=== PATIENT | female | born 1995 | race Caucasian/White ===

== ENCOUNTER 2016-09-24 08:37 | Emergency (ER) | payer OTHER ==
[~2016-09-24] VITALS: Ht 170.2 cm; Wt 101.0 kg
[~2016-09-24 08:37] MED LIST: AUG875 PO; HYDR-3498 PO; OFLO5DRO46 RIGHT EYE; ONDA4TAB35 PO
[2016-09-24 08:44] VITALS: Ht 170.2 cm; Wt 101.0 kg
[2016-09-24] MEDS ORDERED: D-ME473S18 PO (09:11)
[2016-09-24] MEDS ORDERED: BENZ100C70 PO (09:11)
[2016-09-24] MEDS ORDERED: AZIT250T94 PO (09:11)
--- NOTE | 2016-09-24 09:57 | ERD ---
DATE OF SERVICE: 09/24/2016 HISTORY OF PRESENT ILLNESS: The patient is a 20-year-old female complaining of a cough and a sore t hroat. She has had these symptoms for the last 2 weeks. She has had a runny nose and her ears have been ringing and painful. She has not taken medications for her symptoms. Denies sick contacts. Denies fevers. States she is losing her voice. PAST MEDICAL HISTORY: Denies any other medical problems. ALLERGIES: DENIES ALLERGIES TO MEDICATION. SURGICAL HISTORY: Had surgery on her foot when she was younger for glass in her foot. SOCIAL HISTORY: Denies. REVIEW OF SYSTEMS: A 12-point review of systems was done. Refer to HPI for positives, all other sy stems negative. PHYSICAL EXAMINATION: VITAL SIGNS: Temperature is 97.3, pulse is 81, blood pressure is 120/68, respiratory 18, O2 saturat ion 97% on room air. Pain intensity is 0/10. GENERAL: The patient is well-appearing, well-nourished, no acute distress. HEENT: Atraumatic. Conjunctivae are pink. Pupils equal, round, and reactive to light. There is no s cleral icterus. Tympanic membranes clear bilaterally. Oropharynx clear. No nystagmus or photophobia . NECK: C-spine is soft and supple. There is no meningismus. There is no cervical lymphadenopathy. No JVD. No bruits. No goiter. CHEST: Clear to auscultation bilaterally. There are no rales, wheezes or rhonchi. HEART: Regular rate and rhythm. No murmurs, clicks, rubs or gallops. No S3 or S4. ABDOMEN: Soft, nontender and nondistended. Good bowel sounds. No rebound or guarding. No gross halina tonitis. No gross organomegaly or masses. No Cat sign or McBurney point tenderness. SKIN: There is no apparent rash or petechia. The skin is warm and dry. DIAGNOSIS: Upper respiratory infection. MEDICAL DECISION MAKING: The patient had the symptoms nonresolving for the last 2 weeks; however, I feel patient's symptoms are likely associated with viral etiology given the length of her symptoms, I will treat with azithromycin and symptomatic medication for her cough. I have low suspicion for pneumonia, low suspicion for bacterial HEENT infection, meningitis or sepsis and low suspicion for a cute abdomen. DISCHARGE: The patient is discharged stable. Patient is given prescription for azithromycin, Leslie alisson and promethazine and told to follow up with primary care within 1 to 2 days for reevaluation. T he patient was told if symptoms progress or worsen to return to the ER. All other questions answere d at time of discharge. Discharge summary given at the time of departure. Patient understood and c omplied with plan. Dictated By: BRIJESH PALOMINO PA for SYDNEY MA/NTS Conf#: [id number] DID#: [id number]
== END 2016-09-24 09:33 | disposition home or self-care (01) ==
LOC: FTE 08:37
DX: J06.9 Acute upper respiratory infection, unspecified (principal)
CPT/HCPCS: 99284

== ENCOUNTER 2017-01-09 20:19 | Emergency (ER) | payer OTHER ==
[~2017-01-09] VITALS: Ht 167.6 cm; Wt 108.0 kg
[~2017-01-09 20:19] MED LIST changes: +AZIT250T94 PO; +BENZ100C70 PO; +D-ME473S18 PO
[2017-01-09 20:31] VITALS: Ht 167.6 cm; Wt 108.0 kg
[2017-01-09] MEDS ORDERED: IBUP800T25 PO (21:32)
[2017-01-09] MEDS ORDERED: TRAM50TA2 PO (21:32)
--- NOTE | 2017-01-09 22:10 | ERD ---
ER Documentation Chief Complaint Date/Time DATE: 01/09/17 TIME: 22:06 Chief Complaint chronic back pain, r side pain HPI This is a 21-year-old female presenting to the emergency department for chronic back pain x 2 months. Patient attributes pain to work and states she is lifting heavy boxes while working. No fall. Patient has been taking ibuprofen intermittently for pain and states this is not working. Patient states pain is worse with position changes bending over. No chest pain, shortness breath or difficulty breathing. ROS All systems reviewed and are negative except as per history of present illness. Medications Home Meds Active Scripts Tramadol HCl (Tramadol HCl) 50 Mg Tablet, 50 MG PO Q4 Y for PAIN, #10 TAB Prov:EULALIA MORALES NP 01/09/17 Ibuprofen* (Motrin*) 800 Mg Tab, 800 MG PO Q6, #20 TAB Prov:EULALIA MORALES NP 01/09/17 Dextromethorphan Hb-Promethazine Hcl (Promethazine DM Syrup) 473 Ml Syrup, 5 ML PO Q6H Y for COUGH, #4 OZ Prov:SILVIA PALOMINO PA-C 09/24/16 Benzonatate* (Tessalon Perle*) 100 Mg Capsule, 100 MG PO TID, #30 CAP Prov:SILVIA PALOMINO PA-C 09/24/16 Azithromycin* (Zithromax*) 250 Mg Tablet, 250 MG PO .ZPACK DIRECTED, #6 TAB TAKE 500 MG (2 TABS) THE FIRST DAY THEN 250 MG (1 TAB) DAYS 2-5 Prov:SILVIA PALOMINO PA-C 09/24/16 Ofloxacin* (Ocuflox*) 0.3%-5 Ml Ophth Drops, 1 DROP RIGHT EYE QID for 7 Days, BOTTLE Prov:RONAK GONZALES 06/13/16 Amoxicillin-Clavulanate K* (Augmentin*) 875 Mg Tab, 875 MG PO BID for 7 Days, TAB Prov:ADRIÁN KRAUS 09/15/15 Ondansetron Hcl* (Zofran* ODT) 4 mg -ODT Tab.disper, 4 MG PO Q6 Y for NAUSEA AND /OR VOMITING, #10 TAB Prov:MARCO AMANDA NP 09/13/15 Hydrocodone Bit-Acetaminophen* ([place]*) 5-325 Mg Tab, 1 TAB PO Q6 Y for PAIN, # 10 TAB Prov:MARCO AMANDA. CHEMICAL RESEARCH WORKER 09/13/15 Allergies Allergies: Coded Allergies: No Known Allergy (Verified , 09/24/16) PMhx/Soc History of Surgery: Yes (Surgery to remove glass from R foot) Anesthesia Reaction: No Hx Neurological Disorder: No Hx Respiratory Disorders: No Hx Cardiac Disorders: No Hx Psychiatric Problems: No Hx Miscellaneous Medical Probl: No Hx Alcohol Use: No Hx Substance Use: No Hx Tobacco Use: No Physical Exam Vitals Vital Signs Date Time Temp Pulse Resp B/P Pulse Ox O2 Delivery O2 Flow Rate FiO2 01/09/17 20:31 97.5 77 18 141/71 100 Physical Exam Const: Alert, [id number] Head: Atraumatic Eyes: Normal Conjunctiva ENT: Normal External Ears, Nose and Mouth. Neck: Full range of motion..~ No meningismus. Resp: Clear to auscultation bilaterally. No wheezing, rhonchi or crackles. Cardio: Regular rate and rhythm, no murmurs Abd: Soft, non tender, non distended. Normal bowel sounds Skin: No petechiae or rashes Back: No midline or flank tenderness Ext: No cyanosis, or edema Neur: Awake and alert Psych: Normal Mood and Affect Procedures/MDM MDM: This is a 21-year-old female presenting to emergency department for chronic back pain 2 months. Patient has pain mainly to right side of lower back. No midline tenderness. No CVA tenderness. No dysuria or hematuria. No urinary frequency or urgency. Patient has been taking ibuprofen OTC for this pain without relief. No signs or symptoms of respiratory distress. Denies chest pain, shortness of breath or difficulty breathing. No heart palpitations or chest pressure. Low suspicion for acute VA, cauda equina syndrome, UTI or pyelonephritis. Patient likely has back pain, musculoskeletal. Patient is appropriate for outpatient management will be given prescription for ibuprofen 800 mg and tramadol 50 mg. Instructed patient to follow-up with primary care provider in the next 2-3 days for reassessment. Return to ED for any high fever, chest pain, difficulty breathing, shortness breath, wheezing, vomiting, diarrhea, abdominal pain or any new or worsening symptoms. Patient verbalizes understanding. All questions answered at discharge. Departure Diagnosis: Primary Impression: Back pain Back pain location: low back pain Chronicity: acute Back pain laterality: right Sciatica presence: unspecified whether sciatica present Qualified Code : M54.5 - Acute right-sided low back pain, with sciatica presence unspecified Condition: Stable Patient Instructions: Back Pain (Acute Or Chronic) Referrals: COMM[facility]ITY CLIN[facility] YOU HAVE RECEIVED A MEDICAL SCREENING EXAM AND THE RESULTS INDICATE THAT YOU DO NOT HAVE A CONDITION THAT REQUIRES URGENT TREATMENT IN THE EMERGENCY DEPARTMENT. FURTHER EVALUATION AND TREATMENT OF YOUR CONDITION CAN WAIT UNTIL YOU ARE SEEN IN YOUR DOCTORS OFFICE WITHIN THE NEXT 1-2 DAYS. IT IS YOUR RESPONSIBILITY TO MAKE AN APPOINTMENT FOR FOLOW-UP CARE. IF YOU HAVE A PRIMARY DOCTOR --you should call your primary doctor and schedule an appointment IF YOU DO NOT HAVE A PRIMARY DOCTOR YOU CAN CALL OUR PHYSICIAN REFERRAL HOTLINE AT IF YOU CAN NOT AFFORD TO SEE A PHYSICIAN YOU CAN CHOSE FROM THE FOLLOWING [facility] [address] [facility] [address] [facility]. [facility] [address] [facility] [address] [facility] [address] [facility]. [facility]. [address] [facility]. [facility] YOU HAVE RECEIVED A MEDICAL SCREENING EXAM AND THE RESULTS INDICATE THAT YOU DO NOT HAVE A CONDITION THAT REQUIRES URGENT TREATMENT IN THE EMERGENCY DEPARTMENT. FURTHER EVALUATION AND TREATMENT OF YOUR CONDITION CAN WAIT UNTIL YOU ARE SEEN IN YOUR DOCTORS OFFICE WITHIN THE NEXT 1-2 DAYS. IT IS YOUR RESPONSIBILITY TO MAKE AN APPOINTMENT FOR FOLOW-UP CARE. IF YOU HAVE A PRIMARY DOCTOR --you should call your primary doctor and schedule and appointment IF YOU DO NOT HAVE A PRIMARY DOCTOR YOU CAN CALL OUR PHYSICIAN REFERRAL HOTLINE AT . IF YOU CAN NOT AFFORD TO SEE A PHYSICIAN YOU CAN CHOSE FROM THE FOLLOWING [facility] INSTITUTIONS: [facility] [address] [place] [address] [facility] [address] [place] [address] [facility] [address] [place] [address] Additional Instructions: Call your primary care doctor TOMORROW for an appointment during the next 2-3 days.See the doctor sooner or return here if your condition worsens before your appointment time. Return to ED for any chest pain, shortness of breath, difficulty breathing, fever, vomiting or any other new or worsening symptoms. EULALIA MORALES NP Jan 09, 2017 22:10
== END 2017-01-09 21:41 | disposition home or self-care (01) ==
LOC: E/R 20:19
DX: M54.5 Low back pain (principal)
CPT/HCPCS: 99283

== ENCOUNTER 2017-03-16 19:52 | Emergency (ER) | payer OTHER ==
[~2017-03-16] VITALS: Ht 165.1 cm; Wt 104.5 kg
[~2017-03-16 19:52] MED LIST changes: +CIPR500T4 PO; +DICY10CA60 PO; +IBUP800T25 PO; +TRAM50TA2 PO
[2017-03-16 20:05] VITALS: Ht 165.1 cm; Wt 104.5 kg
[2017-03-16] MEDS ORDERED: ONDANSETRON (ODT) 4 MG TAB ODT STA (20:19)
[2017-03-16] MEDS ORDERED: ONDA4TAB14 PO (20:28)
[2017-03-16] MEDS ORDERED: DICY10CA60 PO (20:28)
[2017-03-16] MEDS ORDERED: IBUP-1542 PO (20:28)
[2017-03-16] MEDS ORDERED: IBUPROFEN 600 MG TAB PO ONE (20:30)
[2017-03-16] MEDS ORDERED: DICYCLOMINE 10 MG CAP PO ONE (20:30)
[2017-03-16] MEDS ORDERED: AL HYDROX/MG HYDROX/SIMETH 30 ML CUP PO ONE (20:30)
--- NOTE | 2017-03-16 20:41 | ERD ---
ER Documentation Chief Complaint Date/Time DATE: 03/16/17 TIME: 20:34 Chief Complaint LOWER AP SINCE LAST NIGHT +N/V/D HPI 21-year-old female presents here in emergency department for complaints of lower abdominal pain nausea vomiting and diarrhea that started last night. Patient's complaining of lower abdominal pain cramping pain for 6/10 scale, is accompanied with vomiting diarrhea. Patient does not have any blood in the stool or black stool. Patient does not have any blood in the vomit. Patient does not have any sick contacts. Patient did not take any medications to help with symptoms. ROS All systems reviewed and are negative except as per history of present illness. Medications Home Meds Active Scripts Ondansetron (Ondansetron Odt) 4 Mg Tab.rapdis, 4 MG PO Q8 Y for NAUSEA AND/OR VOMITING, #30 TAB Prov:HUSSAIN ZAVALA NP 03/16/17 Ibuprofen* (Motrin*) 600 Mg Tab, 600 MG PO Q6H Y for PAIN AND OR ELEVATED TEMP, #30 TAB Prov:HUSSAIN ZAVALA NP 03/16/17 Dicyclomine Hcl* (Bentyl*) 10 Mg Capsule, 10 MG PO QID, #20 CAP Prov:HUSSAIN ZAVALA NP 03/16/17 Tramadol HCl (Tramadol HCl) 50 Mg Tablet, 50 MG PO Q4 Y for PAIN, #10 TAB Prov:EULALIA MORALES NP 01/09/17 Ibuprofen* (Motrin*) 800 Mg Tab, 800 MG PO Q6, #20 TAB Prov:EULALIA MORALES NP 01/09/17 Dextromethorphan Hb-Promethazine Hcl (Promethazine DM Syrup) 473 Ml Syrup, 5 ML PO Q6H Y for COUGH, #4 OZ Prov:SILVIA PALOMINO PA-C 09/24/16 Benzonatate* (Tessalon Perle*) 100 Mg Capsule, 100 MG PO TID, #30 CAP Prov:SILVIA PALOMINO PA-C 09/24/16 Azithromycin* (Zithromax*) 250 Mg Tablet, 250 MG PO .SANGITA DIRECTED, #6 TAB TAKE 500 MG (2 TABS) THE FIRST DAY THEN 250 MG (1 TAB) DAYS 2-5 Prov:SILVIA PALOMINO PA-C 09/24/16 Ofloxacin* (Ocuflox*) 0.3%-5 Ml Ophth Drops, 1 DROP RIGHT EYE QID for 7 Days, BOTTLE Prov:RONAK GONZALES C 06/13/16 Amoxicillin-Clavulanate K* (Augmentin*) 875 Mg Tab, 875 MG PO BID for 7 Days, TAB Prov:NAYANAADRIÁN F 09/15/15 Ondansetron Hcl* (Zofran* ODT) 4 mg -ODT Tab.disper, 4 MG PO Q6 Y for NAUSEA AND /OR VOMITING, #10 TAB Prov:MARCO AMANDA. INFORMATION RESOURCE CONSULTANT 09/13/15 Hydrocodone Bit-Acetaminophen* ([place]*) 5-325 Mg Tab, 1 TAB PO Q6 Y for PAIN, # 10 TAB Prov:MARCO AMANDA. INFORMATION RESOURCE CONSULTANT 09/13/15 Allergies Allergies: Coded Allergies: No Known Allergy (Verified , 09/24/16) PMhx/Soc Medical and Surgical Hx: pt denies Medical Hx History of Surgery: Yes (Surgery to remove glass from R foot, cholecystectomy) Anesthesia Reaction: No Hx Neurological Disorder: No Hx Respiratory Disorders: No Hx Cardiac Disorders: No Hx Psychiatric Problems: No Hx Miscellaneous Medical Probl: No Hx Alcohol Use: No Hx Substance Use: No Hx Tobacco Use: No Smoking Status: Never smoker FmHx Family History: No coronary disease, No diabetes, No other Physical Exam Vitals Vital Signs Date Time Temp Pulse Resp B/P Pulse Ox O2 Delivery O2 Flow Rate FiO2 03/16/17 20:05 99.4 85 18 119/84 99 Physical Exam GENERAL: The patient is well developed and appropriate for usual state of health, in no apparent distress. CHEST: Clear to auscultation bilaterally. There are no rales, wheezes or rhonchi. HEART: Regular rate and rhythm. No murmurs, clicks, rubs or gallops. No S3 or S4. ABDOMEN: Soft, nontender and nondistended. Hyperactive bowel sounds. No rebound or guarding. No gross peritonitis. No gross organomegaly or masses. No Cat sign or McBurney point tenderness. BACK: No midline or flank tenderness. EXTREMITIES: Equal pulses bilaterally. There is no peripheral clubbing, cyanosis or edema. No focal swelling or erythema. Full range of motion. Grossly neurovascularly intact. NEURO: Alert and oriented. Cranial nerves 2-12 intact. Motor strength in all 4 extremities with 5/5 strength. Sensation grossly intact. Normal speech and gait. SKIN: There is no apparent rash or petechia. The skin is warm and dry. HEMATOLOGIC AND LYMPHATIC: There is no evidence of excessive bruising or lymphedema. No gross cervical, axillary, or inguinal lymphadenopathy. Results 24 hrs Current Medications Medications (Trade) Dose Ordered Sig/Jami Route PRN Reason Start Time Stop Time Status Last Admin Dose Admin Ondansetron HCl (Zofran Odt) 4 mg ONCE STAT ODT 03/16/17 20:19 03/16/17 20:21 DC Dicyclomine HCl (Bentyl) 20 mg ONCE ONCE PO 03/16/17 20:30 03/16/17 20:31 DC Ibuprofen (Motrin) 600 mg ONCE ONCE PO 03/16/17 20:30 03/16/17 20:31 DC Al Hydrox/Mg Hydrox/Simethicone (Mag-Al Plus) 30 ml ONCE ONCE PO 03/16/17 20:30 03/16/17 20:30 DC Patient was given medicines for fever control here in the emergency department. After treatment, patient temperature improved and lower. Patient appears well and is hemodynamically stable. Bentyl and Zofran was given here in emergency department. Patient was given Zofran here in the emergency department. After treatment, patient was able to tolerate po fluids here in the emergency department without any vomiting. There is no signs and symptoms of dehydration. Procedures/MDM Medical Decision Making: Patient's symptoms of abdominal pain vomiting and diarrhea most likely consistent with viral gastroenteritis. No symptoms of dehydration. No active vomiting at this time. Patient does not complain of abdominal pain at this time. There is low suspicion for abdominal emergencies at this time. Patients abdominal exam is normal at this time. Radiology exams and laboratory testing are indicated not this time. There is low suspicion for appendicitis, cholecystitis, abdominal aortic aneurysms or peritonitis at this time. There is low suspicion for sepsis. Patient appears well and is hemodynamically stable. Disposition: Home. Condition: Stable Prescription Zofran, Bentyl, ibuprofen Instructions: Patient is advised to take medications as prescribed. Patient is advised to rest, increase fluid intake and do brat diet for next 1-2 days and progress as tolerated. Patient is advised that if symptoms are worse, severe abdominal pain, uncontrolled vomiting, high fever, severe flank pain, worst signs and symptoms, to return to the emergency department immediately. Otherwise, patient can follow up with primary care doctor in 5-7 days. Departure Diagnosis: Primary Impression: Viral gastroenteritis Condition: Stable Patient Instructions: Gastroenteritis, Viral (6Y-Adult) HUSSAIN ZAVALA NP Mar 16, 2017 20:40
== END 2017-03-16 20:40 | disposition home or self-care (01) ==
LOC: FTE 19:52
DX: A08.4 Viral intestinal infection, unspecified (principal)
CPT/HCPCS: Z7502; Z7610; 99284

== ENCOUNTER 2017-05-17 14:38 | Emergency (ER) | payer OTHER ==
[~2017-05-17] VITALS: Ht 152.4 cm; Wt 11.5 kg
[~2017-05-17 14:38] MED LIST changes: -CIPR500T4 PO; +IBUP-1542 PO; +ONDA4TAB14 PO
[2017-05-17 14:46] VITALS: Ht 152.4 cm; Wt 11.5 kg
[2017-05-17] MEDS ORDERED: KETOROLAC 30 MG INJ IM STA (15:15)
--- NOTE | 2017-05-17 16:42 | RADRPT ---
PROCEDURE: XR Left Wrist. CLINICAL INDICATION: Left wrist pain and paresthesias TECHNIQUE: AP, lateral and oblique views of the wrist were performed. COMPARISON: No prior studies are available for comparison. FINDINGS: No acute fracture dislocation is identified. The bones appear well mineralized. The joint spaces are well maintained. The soft tissues are normal. IMPRESSION: No definite abnormalities are identified. RPTAT:AAJJ Wiley Polanco Physician Date Time Electronically viewed and signed by Wiley Polanco Physician on 05/17/2017 16:41 /
[2017-05-17] MEDS ORDERED: IBUP-1542 PO (16:45)
--- NOTE | 2017-05-17 16:45 | ERD ---
ER Documentation Chief Complaint Chief Complaint Left hand numbness HPI The patient is a 21-year-old female who presents to the Emergency Department with complaint of pain and tingling to the left hand. The patient reports that she has noted these symptoms to a mild degree intermittently over the past week. However, over the past 4 days, she notes that she has been experiencing pain and tingling, mostly to the first three digits of the left hand, that radiates towards the wrist. The pain is dull and aching in nature, and recently associated with clumsiness of that hand. 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 She reports that she has woken up 3 of the last 4 nights, with these sensations, feeling almost as if her left hand is asleep/numb, requiring her to shake them and place it under warm water. She denies any falls, injury or trauma to the affected extremity. Denies restricted range of motion. Denies any current pain at this time. No other complaints. ROS All systems reviewed and are negative except as per history of present illness. Medications Home Meds Active Scripts Ibuprofen* (Motrin*) 600 Mg Tab, 600 MG PO Q6, #30 TAB Prov:BRIAN DE LA TORRE PA-C 05/17/17 Ondansetron (Ondansetron Odt) 4 Mg Tab.rapdis, 4 MG PO Q8 Y for NAUSEA AND/OR VOMITING, #30 TAB Prov:HUSSAIN ZAVALA NP 03/16/17 Ibuprofen* (Motrin*) 600 Mg Tab, 600 MG PO Q6H Y for PAIN AND OR ELEVATED TEMP, #30 TAB Prov:HUSSAIN ZAVALA NP 03/16/17 Dicyclomine Hcl* (Bentyl*) 10 Mg Capsule, 10 MG PO QID, #20 CAP Prov:HUSSAIN ZAVALA NP 03/16/17 Tramadol HCl (Tramadol HCl) 50 Mg Tablet, 50 MG PO Q4 Y for PAIN, #10 TAB Prov:EULALIA MORALES NP 01/09/17 Ibuprofen* (Motrin*) 800 Mg Tab, 800 MG PO Q6, #20 TAB Prov:EULALIA MORALES NP 01/09/17 Dextromethorphan Hb-Promethazine Hcl (Promethazine DM Syrup) 473 Ml Syrup, 5 ML PO Q6H Y for COUGH, #4 OZ Prov:SILVIA PALOMINO PA-C 09/24/16 Benzonatate* (Tessalon Perle*) 100 Mg Capsule, 100 MG PO TID, #30 CAP Prov:SILVIA PALOMINO PA-C 09/24/16 Azithromycin* (Zithromax*) 250 Mg Tablet, 250 MG PO .ZPACK DIRECTED, #6 TAB TAKE 500 MG (2 TABS) THE FIRST DAY THEN 250 MG (1 TAB) DAYS 2-5 Prov:SILVIA PALOMINO PA-C 09/24/16 Ofloxacin* (Ocuflox*) 0.3%-5 Ml Ophth Drops, 1 DROP RIGHT EYE QID for 7 Days, BOTTLE Prov:RONAK GONZALES 06/13/16 Amoxicillin-Clavulanate K* (Augmentin*) 875 Mg Tab, 875 MG PO BID for 7 Days, TAB Prov:ADRIÁN KRAUS 09/15/15 Ondansetron Hcl* (Zofran* ODT) 4 mg -ODT Tab.disper, 4 MG PO Q6 Y for NAUSEA AND /OR VOMITING, #10 TAB Prov:MARCO AMANDA ELECTRONICS MANUFACTURER 09/13/15 Hydrocodone Bit-Acetaminophen* ([place]*) 5-325 Mg Tab, 1 TAB PO Q6 Y for PAIN, # 10 TAB Prov:MARCO AMANDA. ELECTRONICS MANUFACTURER 09/13/15 Allergies Allergies: Coded Allergies: No Known Allergy (Verified , 09/24/16) PMhx/Soc History of Surgery: Yes (Surgery to remove glass from R foot, cholecystectomy) Anesthesia Reaction: No Hx Neurological Disorder: No Hx Respiratory Disorders: No Hx Cardiac Disorders: No Hx Psychiatric Problems: No Hx Miscellaneous Medical Probl: No Hx Alcohol Use: No Hx Substance Use: No Hx Tobacco Use: No Physical Exam Vitals Vital Signs Date Time Temp Pulse Resp B/P Pulse Ox O2 Delivery O2 Flow Rate FiO2 05/17/17 14:46 98.1 87 18 116/87 99 Physical Exam GENERAL: Well-developed, well-nourished, in no acute distress HEENT: Head is normocephalic, atraumatic. No scleral pallor or icterus. Extraocular movements intact. Conjunctiva pink. Moist mucous membranes. NECK: Supple. No masses, no tenderness, no lymphadenopathy. Trachea midline. No nuchal rigidity. Full range of motion. Negative Spurling maneuver. RESPIRATORY: Lungs are clear to auscultation bilaterally. Normal expiratory effort. CARDIOVASCULAR: Regular rate and rhythm. S1 and S2 normal. BACK: No midline tenderness. EXTREMITIES: No clubbing, cyanosis, or edema. Normal skin perfusion. Full range of motion of both the upper and lower extremities bilaterally. Muscle tone is normal. No focal swelling or erythema. Positive Phalen and Tinel sign to left upper extremity. No wasting of hand musculature. Compartments are soft. Distal pulses are palpable, 2+ bilaterally. Capillary refill is less than 2 seconds. NEUROLOGIC: The patient is alert, awake, and oriented x 3. No focal neurologic deficits. Motor normal in all extremities. Sensation grossly intact. Cranial nerves grossly intact. Speech is normal. INTEGUMENT: Skin is clean, dry and intact. No rashes, lesions or petechiae present. PSYCHIATRIC: Appropriate; Cooperative. Results 24 hrs Current Medications Medications (Trade) Dose Ordered Sig/Jami Route PRN Reason Start Time Stop Time Status Last Admin Dose Admin Ketorolac Tromethamine (Toradol) 30 mg ONCE STAT IM 05/17/17 15:15 05/17/17 15:17 DC 05/17/17 15:25 Procedures/MDM DIAGNOSTIC TESTS AND INTERPRETATION: PROCEDURE: XR Left Wrist. CLINICAL INDICATION: Left wrist pain and paresthesias TECHNIQUE: AP, lateral and oblique views of the wrist were performed. COMPARISON: No prior studies are available for comparison. FINDINGS:No acute fracture dislocation is identified. The bones appear well mineralized. The joint spaces are well maintained. The soft tissues are normal. IMPRESSION:No definite abnormalities are identified. Physician Essie Date Time Electronically viewed and signed by Physician Essie on 05/17/2017 16: 41 SPLINT APPLICATION: INDICATION: Left wrist/hand pain. Carpal tunnel. LOCATION: Left upper extremity. TYPE OF SPLINT: Wrist splint. NEUROVASCULAR EXAM: The patients extremity was neurovascularly intact prior to and status post splint placement. MEDICAL DECISION MAKING: This is a 21-year-old female presenting to the Emergency Department with complaint of pain, paresthesias and numbness radiating from the left wrist down towards the first three digits of the left hand. On physical examination, she had a positive Tinel test and Phalen maneuver of the left upper extremity, consistent with carpal tunnel syndrome. She had no recent trauma, falls or injuries, no gross deformities noted, and therefore I doubt fracture, dislocation or subluxation. No acute osseous abnormalities noted on x-ray imaging. Normal range of motion, with no increased tenseness of the muscles, no evidence of compartment syndrome. Distally she was neurovascularly intact with no deficits, no restricted range of motion. No focal erythema or swelling, no fevers or systemic symptoms, no evidence of septic joint. Patient had a normal neurologic examination, she is young and healthy, and therefore I doubt CVA/mass/lesion. No neck spasm, tenderness, negative Spurling maneuver, doubt cervical radiculopathy. After rest and administration of Toradol the patient reports no new complaints. Discussed that patient's results may be secondary to underlying carpal tunnel syndrome. She is advised to follow up with her primary medical provider in 1-2 days for re -evaluation and further management, or return to the ED sooner for any new or worsening symptoms. She will be given a prescription for ibuprofen, to alleviate any underlying inflammation that may contribute to her symptoms. Further testing may be performed as an outpatient. I shared my medical decision making and plan with the patient, who complies and agree with plan. At the time of discharge, all questions were answered. Departure Diagnosis: Primary Impression: Left wrist pain Additional Impression: Carpal tunnel syndrome of left wrist Condition: Stable Patient Instructions: Carpal Tunnel, Carpal Tunnel Syndrome Prevention Tips, What Is Carpal Tunnel Syndrome (CTS)? Additional Instructions: Call your primary care doctor TOMORROW for an appointment during the next 1-2 days.See the doctor sooner or return here if your condition worsens before your appointment time. BRIAN DE LA TORRE PA-C May 17, 2017 16:45
== END 2017-05-17 16:50 | disposition home or self-care (01) ==
LOC: FTE 14:38
DX: G56.02 Carpal tunnel syndrome, left upper limb (principal)
CPT/HCPCS: 29125; 73110; 96372; J1885; Z7502

== ENCOUNTER 2017-06-13 15:46 | Emergency (ER) | payer OTHER ==
[~2017-06-13] VITALS: Ht 165.1 cm; Wt 118.4 kg
[2017-06-13 15:50] VITALS: Ht 165.1 cm; Wt 118.4 kg
[2017-06-13] MEDS ORDERED: IBUP-1542 PO (16:18)
--- NOTE | 2017-06-13 16:49 | ERD ---
ER Documentation Chief Complaint Chief Complaint Complains of hand / wrist pain x 2 weeks HPI 21-year-old [id number]-[id number] female complaining of left wrist pain 3 weeks. Patient was seen here on 05/17/2017, was given a prescription ibuprofen and wrist brace. Patient stated that she told her work about her condition, and was reassigned to a job that does not require lots of use of her wrist. Her symptoms improved, but returned 1 week ago. She reports pain with certain movements or lifting objects. Occasionally she has numbness on her fingers. She has finished ibuprofen prescribed for her, and wants another prescription. Denies trauma. Denies fever or chills. ROS All systems reviewed and are negative except as per history of present illness. Medications Home Meds Active Scripts Ibuprofen* (Motrin*) 600 Mg Tab, 600 MG PO Q6H Y for PAIN AND OR ELEVATED TEMP, #30 TAB Prov:MARCO AMANDA NP 06/13/17 Ibuprofen* (Motrin*) 600 Mg Tab, 600 MG PO Q6, #30 TAB Prov:BRIAN DE LA TORRE PA-C 05/17/17 Ondansetron (Ondansetron Odt) 4 Mg Tab.rapdis, 4 MG PO Q8 Y for NAUSEA AND/OR VOMITING, #30 TAB Prov:HUSSAIN ZAVALA NP 03/16/17 Ibuprofen* (Motrin*) 600 Mg Tab, 600 MG PO Q6H Y for PAIN AND OR ELEVATED TEMP, #30 TAB Prov:HUSSAIN ZAVALA NP 03/16/17 Dicyclomine Hcl* (Bentyl*) 10 Mg Capsule, 10 MG PO QID, #20 CAP Prov:HUSSAIN ZAVALA NP 03/16/17 Tramadol HCl (Tramadol HCl) 50 Mg Tablet, 50 MG PO Q4 Y for PAIN, #10 TAB Prov:EULALIA MORALES NP 01/09/17 Ibuprofen* (Motrin*) 800 Mg Tab, 800 MG PO Q6, #20 TAB Prov:EULALIA MORALES NP 01/09/17 Dextromethorphan Hb-Promethazine Hcl (Promethazine DM Syrup) 473 Ml Syrup, 5 ML PO Q6H Y for COUGH, #4 OZ Prov:SILVIA PALOMINO PA-C 09/24/16 Benzonatate* (Tessalon Perle*) 100 Mg Capsule, 100 MG PO TID, #30 CAP Prov:SILVIA PALOMINO PA-C 09/24/16 Azithromycin* (Zithromax*) 250 Mg Tablet, 250 MG PO .ZPACK DIRECTED, #6 TAB TAKE 500 MG (2 TABS) THE FIRST DAY THEN 250 MG (1 TAB) DAYS 2-5 Prov:SILVIA PALOMINO PA-C 09/24/16 Ofloxacin* (Ocuflox*) 0.3%-5 Ml Ophth Drops, 1 DROP RIGHT EYE QID for 7 Days, BOTTLE Prov:RONAK GONZALES 06/13/16 Amoxicillin-Clavulanate K* (Augmentin*) 875 Mg Tab, 875 MG PO BID for 7 Days, TAB Prov:ADRIÁN KRAUS 09/15/15 Ondansetron Hcl* (Zofran* ODT) 4 mg -ODT Tab.disper, 4 MG PO Q6 Y for NAUSEA AND /OR VOMITING, #10 TAB Prov:MARCO AMANDA. STRAIGHT RULING MACHINE OPERATOR 09/13/15 Hydrocodone Bit-Acetaminophen* ([place]*) 5-325 Mg Tab, 1 TAB PO Q6 Y for PAIN, # 10 TAB Prov:MARCO AMANDA. STRAIGHT RULING MACHINE OPERATOR 09/13/15 Allergies Allergies: Coded Allergies: No Known Allergy (Verified , 09/24/16) PMhx/Soc History of Surgery: Yes (Surgery to remove glass from R foot, cholecystectomy) Anesthesia Reaction: No Hx Neurological Disorder: No Hx Respiratory Disorders: No Hx Cardiac Disorders: No Hx Psychiatric Problems: No Hx Miscellaneous Medical Probl: No Hx Alcohol Use: No Hx Substance Use: No Hx Tobacco Use: No Physical Exam Vitals Vital Signs Date Time Temp Pulse Resp B/P Pulse Ox O2 Delivery O2 Flow Rate FiO2 06/13/17 15:50 98.6 86 20 141/71 97 Physical Exam General: Well-developed, well-nourished, conscious and coherent, in no distress Skin: Warm and dry without rash, good texture and turgor Head: Normocephalic without evidence of trauma Eyes: Sclera and conjunctivae normal; pupils equal, round, and reactive to light; extraocular movements are intact Neck: Supple without meningismus or adenopathy. Carotids are equal. Trachea midline. No bruits or JVD Chest: Normal AP diameter. Good expansion without retractions. Nontender. Lungs are clear to auscultate bilaterally with good tidal volume Heart: Regular rate and rhythm. No murmur, rub, or gallops heard Extremities: Left wrist mildly tender at the radial aspect. Full range of motion. Good strength bilaterally. No clubbing, cyanosis, or edema. Peripheral pulses are intact. Sensation intact. Tinel and Phalen signs negative. Neuro: Alert and oriented 4, GCS 15. Cranial nerves grossly intact. Motor and sensory exams nonfocal. Moves all extremities. Speech clear. Gait normal Procedures/MDM Well-appearing 19-year-old female presented to ED was left wrist pain and finger numbness. Her symptoms exam findings are consistent with tenosynovitis, likely de Quervain's syndrome. I doubt carpal tunnel syndrome. I doubt fractures, dislocations, or sprain. Patient was given wrist splint in her previous visit. However she is not currently wearing the splint. Advised patient that she needs to continue wearing the wrist splint for several weeks until her symptoms resolved. Patient was advised to follow-up with her PCP for physical therapy and orthopedic referral. Patient appears well, stable for discharge and outpatient management. Medical decision making shared with patient and family. Education provided to patient and family. Patient and family expressed understanding of the plan. Medications on discharge: Ibuprofen. Follow-up: Primary care provider in 2-3 days or return to ED if worse. Disclaimer: Inadvertent spelling and grammatical errors are likely due to EHR/ dictation software use and do not reflect on the overall quality of patient care. Also, please note that the electronic time recorded on this note does not necessarily reflect the actual time of the patient encounter. Departure Diagnosis: Primary Impression: Tenosynovitis Condition: Stable Patient Instructions: Tendonitis Referrals: DOCTOR,NOT ON STAFF COMMUNITY CLINICS YOU HAVE RECEIVED A MEDICAL SCREENING EXAM AND THE RESULTS INDICATE THAT YOU DO NOT HAVE A CONDITION THAT REQUIRES URGENT TREATMENT IN THE EMERGENCY DEPARTMENT. FURTHER EVALUATION AND TREATMENT OF YOUR CONDITION CAN WAIT UNTIL YOU ARE SEEN IN YOUR DOCTORS OFFICE WITHIN THE NEXT 1-2 DAYS. IT IS YOUR RESPONSIBILITY TO MAKE AN APPOINTMENT FOR FOLOW-UP CARE. IF YOU HAVE A PRIMARY DOCTOR --you should call your primary doctor and schedule an appointment IF YOU DO NOT HAVE A PRIMARY DOCTOR YOU CAN CALL OUR PHYSICIAN REFERRAL HOTLINE AT IF YOU CAN NOT AFFORD TO SEE A PHYSICIAN YOU CAN CHOSE FROM THE FOLLOWING [facility] [address] [facility] [address] [facility] [address] [facility] [address] [facility] [address] [facility]. [facility] [address] Additional Instructions: Call your primary care doctor TOMORROW for an appointment during the next 2-3 days.See the doctor sooner or return here if your condition worsens before your appointment time. Keep wearing the wrist splint provided for you. MARCO AMANDA NP Jun 13, 2017 16:40
== END 2017-06-13 16:35 | disposition home or self-care (01) ==
LOC: FTE 15:46
DX: M65.849 Other synovitis and tenosynovitis, unspecified hand (principal)
CPT/HCPCS: 99283

== ENCOUNTER 2018-01-02 06:11 | Emergency (ER) | END 2018-01-02 08:19 | disposition home or self-care (01) ==

== ENCOUNTER 2018-06-01 09:09 | Emergency (ER) | END 2018-06-01 12:42 | disposition home or self-care (01) ==

== ENCOUNTER 2018-07-29 15:26 | Emergency (ER) | payer OTHER ==
[~2018-07-29] VITALS: Ht 165.1 cm; Wt 118.7 kg
[~2018-07-29 15:26] MED LIST changes: +ACET325T33 PO; +AZIT250T PO; -AZIT250T94 PO; +BENZ-6 PO; -BENZ100C70 PO; +DICY10CA40 PO; -DICY10CA60 PO; -IBUP800T25 PO; +IBUP800T48 PO; +NAPR-985 PO; +RANI150T35 PO
[2018-07-29 15:35] VITALS: Ht 165.1 cm; Wt 118.7 kg
[2018-07-29] MEDS ORDERED: LIDOCAINE/MYLANTA 40 ML BTL PO STA (16:56)
[2018-07-29] MEDS ORDERED: MAG-19 PO (18:09)
--- NOTE | 2018-07-29 18:26 | ERD ---
ER Documentation Chief Complaint Chief Complaint R-sided AP, dizziness X 2 days HPI 22-year-old female presents for abdominal pain times 2 days. She states that she has pain in the epigastric area, right upper quadrant, bilateral lower abdomen. She states that the pain is intermittent. She rates the pain as 5 out of 10. Described as a dull sensation. She has had prior similar symptoms before but she states it resolved on its own. She denies any nausea vomiting or diarrhea. She denies fevers or chills. Denies chest pain or shortness of breath. ROS All systems reviewed and are negative except as per history of present illness. Medications Home Meds Active Scripts Magaldrate/Simethicone* (Mylanta*) 355 Ml Susp, 30 ML PO QID PRN for GASTROINTESTINAL UPSET, #1 BOTTLE Prov:KASIA VARNER DO 07/29/18 Acetaminophen* (Tylenol*) 325 Mg Tablet, 2 TAB PO Q6 PRN for PAIN AND OR ELEVATED TEMP, #20 TAB Prov:ISSA BORDEN MD 06/01/18 Ranitidine Hcl* (Zantac*) 150 Mg Tablet, 150 MG PO BID PRN for EPIGASTRIC PAIN, #30 TAB Prov:ISSA BORDEN MD 06/01/18 Naproxen* (Naprosyn*) 500 Mg Tablet, 500 MG PO BID PRN for PAIN AND/OR INFLAMMATION, #30 TAB Prov:SILVIA PALOMINO PA-C 01/02/18 Ibuprofen* (Motrin*) 600 Mg Tab, 600 MG PO Q6H PRN for PAIN AND OR ELEVATED TEMP, #30 TAB Prov:MARCO AMANDA NP 06/13/17 Ibuprofen* (Motrin*) 600 Mg Tab, 600 MG PO Q6, #30 TAB Prov:BRIAN DE LA TORRE PA-C 05/17/17 Ondansetron (Ondansetron Odt) 4 Mg Tab.rapdis, 4 MG PO Q8 PRN for NAUSEA AND/OR VOMITING, #30 TAB Prov:HUSSAIN ZAVALA NP 03/16/17 Ibuprofen* (Motrin*) 600 Mg Tab, 600 MG PO Q6H PRN for PAIN AND OR ELEVATED TEMP, #30 TAB Prov:HUSSAIN ZAVALA NP 03/16/17 Dicyclomine HCl (Dicyclomine HCl) 10 Mg Capsule, 10 MG PO QID, #20 CAP Prov:SALLYHUSSAIN NP 03/16/17 Tramadol HCl (Tramadol HCl) 50 Mg Tablet, 50 MG PO Q4 PRN for PAIN, #10 TAB Prov:EULALIA MORALES NP 01/09/17 Ibuprofen* (Motrin*) 800 Mg Tab, 800 MG PO Q6, #20 TAB Prov:EULALIA MORALES NP 01/09/17 Dextromethorphan Hb-Promethazine Hcl (Promethazine DM Syrup) 473 Ml Syrup, 5 ML PO Q6H PRN for COUGH, #4 OZ Prov:SILVIA PALOMINO PA-C 09/24/16 Benzonatate* (Tessalon Perle*) 100 Mg Capsule, 100 MG PO TID, #30 CAP Prov:SILVIA PALOMINO PA-C 09/24/16 Azithromycin* (Zithromax*) 250 Mg Tablet, 250 MG PO .SANGITA DIRECTED, #6 TAB TAKE 500 MG (2 TABS) THE FIRST DAY THEN 250 MG (1 TAB) DAYS 2-5 Prov:SILVIA PALOMINO PA-C 09/24/16 Ofloxacin* (Ocuflox*) 0.3%-5 Ml Ophth Drops, 1 DROP RIGHT EYE QID for 7 Days, BOTTLE Prov:RONAK GONZALES 06/13/16 Amoxicillin-Clavulanate K* (Augmentin*) 875 Mg Tab, 875 MG PO BID for 7 Days, TAB Prov:ADRIÁN KRAUS 09/15/15 Ondansetron Hcl* (Zofran* ODT) 4 mg -ODT Tab.disper, 4 MG PO Q6 PRN for NAUSEA AND/OR VOMITING, #10 TAB Prov:MARCO AMANDA NP 09/13/15 Hydrocodone Bit-Acetaminophen* ([place]*) 5-325 Mg Tab, 1 TAB PO Q6 PRN for PAIN, #10 TAB Prov:MARCO AMANDA NP 09/13/15 Allergies Allergies: Coded Allergies: No Known Allergy (Verified , 09/24/16) PMhx/Soc History of Surgery: Yes (Cholecystectomy) Anesthesia Reaction: No Hx Neurological Disorder: No Hx Respiratory Disorders: No Hx Cardiac Disorders: No Hx Psychiatric Problems: No Hx Miscellaneous Medical Probl: No Hx Alcohol Use: No Hx Substance Use: No Hx Tobacco Use: No Smoking Status: Never smoker Physical Exam Vitals Vital Signs Date Temp Pulse Resp B/P (MAP) Pulse Ox O2 O2 Flow FiO2 Time Delivery Rate 07/29/18 99.2 104 18 139/79 100 15:35 (99) Physical Exam Const: No acute distress Resp: Clear to auscultation bilaterally Cardio: Regular rate and rhythm, no murmurs Abd: Soft, non distended. Normal bowel sounds, mild diffuse tenderness to palpation, no Cat sign no rebound or guarding noted. Skin: No petechiae or rashes Back: No midline or flank tenderness Ext: No cyanosis, or edema Neur: Awake and alert Psych: Normal Mood and Affect Result Diagram: 07/29/18 1704 07/29/18 1704 Results 24 hrs Laboratory Tests Test 07/29/18 17:04 07/29/18 17:15 White Blood Count 10.2 10^3/ul Red Blood Count 4.34 10^6/ul Hemoglobin 12.9 g/dl Hematocrit 38.9 % Mean Corpuscular Volume 89.6 fl Mean Corpuscular Hemoglobin 29.7 pg Mean Corpuscular Hemoglobin Concent 33.2 g/dl Red Cell Distribution Width 13.2 % Platelet Count 256 10^3/UL Mean Platelet Volume 10.4 fl Immature Granulocytes % 0.300 % Neutrophils % 64.9 % Lymphocytes % 26.9 % Monocytes % 5.8 % Eosinophils % 1.6 % Basophils % 0.5 % Nucleated Red Blood Cells % 0.0 /100WBC Immature Granulocytes # 0.030 10^3/ul Neutrophils # 6.6 10^3/ul Lymphocytes # 2.7 10^3/ul Monocytes # 0.6 10^3/ul Eosinophils # 0.2 10^3/ul Basophils # 0.1 10^3/ul Nucleated Red Blood Cells # 0.0 10^3/ul Urine Color YELLOW Urine Clarity SLIGHTLY CLOUDY Urine pH 6.0 Urine Specific [place] 1.028 Urine Ketones NEGATIVE mg/dL Urine Nitrite NEGATIVE mg/dL Urine Bilirubin NEGATIVE mg/dL Urine Urobilinogen NEGATIVE mg/dL Urine Leukocyte Esterase TRACE Ronen/ul Urine Microscopic RBC 4 /HPF Urine Microscopic WBC 6 /HPF Urine Squamous Epithelial Cells MODERATE /HPF Urine Bacteria FEW /HPF Urine Mucus FEW /HPF Urine Hemoglobin NEGATIVE mg/dL Urine Glucose NEGATIVE mg/dL Urine Total Protein NEGATIVE mg/dl Sodium Level 140 mmol/L Potassium Level 4.2 mmol/L Chloride Level 103 mmol/L Carbon Dioxide Level 29 mmol/L Anion Gap 8 Blood Urea Nitrogen 12 mg/dl Creatinine 0.53 mg/dl Est Glomerular Filtrat Rate mL/min > 60 mL/min Glucose Level 98 mg/dl Calcium Level 9.7 mg/dl Total Bilirubin 0.0 mg/dl Direct Bilirubin 0.00 mg/dl Indirect Bilirubin 0.0 mg/dl Aspartate Amino Transf (AST/SGOT) 25 IU/L Alanine Aminotransferase (ALT/SGPT) 24 IU/L Alkaline Phosphatase 113 IU/L Total Protein 8.3 g/dl Albumin 4.4 g/dl Globulin 3.90 g/dl Albumin/Globulin Ratio 1.12 Lipase 83 U/L POC Beta HCG, Qualitative NEGATIVE Current Medications Medications Dose Sig/Jami Start Time Status Last (Trade) Ordered Route PRN Stop Time Admin Dose Reason Admin 40 ml ONCE STAT 07/29/18 DC 07/29/18 Miscellaneous PO 16:56 07/29/18 17:06 Medication 16:58 (Gi Cocktail (2)) Procedures/MDM Medical Decision Making: Differential diagnosis includes but not limited to acute gastroenteritis, acute gastritis, appendicitis, cholecystitis, pancreatitis. Patient appeared well on physical exam. Nontoxic appearing. Abdominal examination is relatively benign. Low suspicion for an acute abdomen. Labs: CBC showed no anemia, no elevated WBC to suggest infection CMP showed no electrolyte abnormalities, there was normal kidney and liver function Lipase was normal Urine was negative UA was showed mildly elevated WBC however patient is a symptomatic. Patient likely has acute gastritis. ED course: Patient was given GI cocktail. Symptoms improved with treatment. Prescription(s): Patient given prescription for Mylanta. Patient advised to follow up with PCP in 1-2 days. Patient advised to return to ED for new or worsening symptoms. Patient stable on discharge from the ED. Disclaimer: Inadvertent spelling and grammatical errors are likely due to EHR/dictation software use and do not reflect on the overall quality of patient care. Also, please note that the electronic time recorded on this note does not necessarily reflect the actual time of the patient encounter. Departure Diagnosis: Primary Impression: Abdominal pain Abdominal location: generalized Qualified Codes: R10.84 - Generalized abdominal pain Condition: Fair Patient Instructions: Abdominal Pain, Gastritis (Adult), Antacid/Gas Oral suspension Referrals: JOVANY LONG DO (PCP) Additional Instructions: Call your primary care doctor TOMORROW for an appointment during the next 1-2 days.See the doctor sooner or return here if your condition worsens before your appointment time. KASIA VARNER DO Jul 29, 2018 18:26
[2018-07-29 18:34] VITALS: BP 118/75; PULSE 74; RESP 19
== END 2018-07-29 18:35 | disposition home or self-care (01) ==
LOC: FTE 15:26
DX: R10.84 Generalized abdominal pain (principal)
CPT/HCPCS: 36415; 80053; 81001; 81025; 83690; 85025; Z7502; Z7610; 99283

== ENCOUNTER 2018-08-19 09:53 | Emergency (ER) | payer OTHER ==
[~2018-08-19] VITALS: Ht 167.6 cm; Wt 116.8 kg
[~2018-08-19 09:53] MED LIST changes: +MAG-19 PO
[2018-08-19 09:56] VITALS: BP 140/63; PULSE 90; RESP 18; Ht 167.6 cm; Wt 116.8 kg
[2018-08-19] MEDS ORDERED: ONDANSETRON (ODT) 4 MG TAB ODT STA (10:48)
[2018-08-19] MEDS ORDERED: NITR-58 PO (11:12)
--- NOTE | 2018-08-19 12:32 | ERD ---
ER Documentation Chief Complaint Chief Complaint HEADACHE , MISSED PERIOD X 2 MONTHS HPI 22-year-old female presenting with headache and nausea. She has not had a period in 2 months and is unsure if she is . Patient is normally regular with her periods. She has generalized abdominal pain with no vomiting. Denies other medical problems. NKDA. Surgical history denies. Social history denies ROS All systems reviewed and are negative except as per history of present illness. Medications Home Meds Active Scripts Nitrofurantoin Monohyd Macrocr* (Macrobid*) 100 Mg Capsr, 100 MG PO BID for 14 Days, CAP Prov:SILVIA PALOMINO PA-C 08/19/18 Magaldrate/Simethicone* (Mylanta*) 355 Ml Susp, 30 ML PO QID PRN for GASTROINTESTINAL UPSET, #1 BOTTLE Prov:KASIA VARNER DO 07/29/18 Acetaminophen* (Tylenol*) 325 Mg Tablet, 2 TAB PO Q6 PRN for PAIN AND OR ELEVATED TEMP, #20 TAB Prov:ISSA BORDEN MD 06/01/18 Ranitidine Hcl* (Zantac*) 150 Mg Tablet, 150 MG PO BID PRN for EPIGASTRIC PAIN, #30 TAB Prov:ISSA BORDEN MD 06/01/18 Naproxen* (Naprosyn*) 500 Mg Tablet, 500 MG PO BID PRN for PAIN AND/OR INFLAMMATION, #30 TAB Prov:SILVIA PALOMINO PA-C 01/02/18 Ibuprofen* (Motrin*) 600 Mg Tab, 600 MG PO Q6H PRN for PAIN AND OR ELEVATED TEMP, #30 TAB Prov:MARCO AMANDA NP 06/13/17 Ibuprofen* (Motrin*) 600 Mg Tab, 600 MG PO Q6, #30 TAB Prov:BRIAN DE LA TORRE PA-C 05/17/17 Ondansetron (Ondansetron Odt) 4 Mg Tab.rapdis, 4 MG PO Q8 PRN for NAUSEA AND/OR VOMITING, #30 TAB Prov:HUSSAIN ZAVALA NP 03/16/17 Ibuprofen* (Motrin*) 600 Mg Tab, 600 MG PO Q6H PRN for PAIN AND OR ELEVATED TEMP, #30 TAB Prov:HUSSAIN ZAVALA NP 03/16/17 Dicyclomine HCl (Dicyclomine HCl) 10 Mg Capsule, 10 MG PO QID, #20 CAP Prov:HUSSAIN ZAVALA NP 03/16/17 Tramadol HCl (Tramadol HCl) 50 Mg Tablet, 50 MG PO Q4 PRN for PAIN, #10 TAB Prov:EULALIA MORALES NP 01/09/17 Ibuprofen* (Motrin*) 800 Mg Tab, 800 MG PO Q6, #20 TAB Prov:EULALIA MORALES NP 01/09/17 Dextromethorphan Hb-Promethazine Hcl (Promethazine DM Syrup) 473 Ml Syrup, 5 ML PO Q6H PRN for COUGH, #4 OZ Prov:SILVIA PALOMINO PA-C 09/24/16 Benzonatate* (Tessalon Perle*) 100 Mg Capsule, 100 MG PO TID, #30 CAP Prov:SILVIA PALOMINO PA-C 09/24/16 Azithromycin* (Zithromax*) 250 Mg Tablet, 250 MG PO .ReneePACK DIRECTED, #6 TAB TAKE 500 MG (2 TABS) THE FIRST DAY THEN 250 MG (1 TAB) DAYS 2-5 Prov:SILVIA PALOMINO PA-C 09/24/16 Ofloxacin* (Ocuflox*) 0.3%-5 Ml Ophth Drops, 1 DROP RIGHT EYE QID for 7 Days, BOTTLE Prov:RONAK GONZALES 06/13/16 Amoxicillin-Clavulanate K* (Augmentin*) 875 Mg Tab, 875 MG PO BID for 7 Days, TAB Prov:ADRIÁN KRAUS 09/15/15 Ondansetron Hcl* (Zofran* ODT) 4 mg -ODT Tab.disper, 4 MG PO Q6 PRN for NAUSEA AND/OR VOMITING, #10 TAB Prov:MARCO AMANDA NP 09/13/15 Hydrocodone Bit-Acetaminophen* ([place]*) 5-325 Mg Tab, 1 TAB PO Q6 PRN for PAIN, #10 TAB Prov:MARCO AMANDA NP 09/13/15 Allergies Allergies: Coded Allergies: No Known Allergy (Verified , 09/24/16) PMhx/Soc History of Surgery: Yes (Cholecystectomy) Anesthesia Reaction: No Hx Neurological Disorder: No Hx Respiratory Disorders: No Hx Cardiac Disorders: No Hx Psychiatric Problems: No Hx Miscellaneous Medical Probl: No Hx Alcohol Use: Yes (social) Hx Substance Use: No Hx Tobacco Use: No Smoking Status: Never smoker FmHx Family History: No diabetes, No coronary disease, No other Physical Exam Vitals Vital Signs Date Temp Pulse Resp B/P (MAP) Pulse Ox O2 O2 Flow FiO2 Time Delivery Rate 08/19/18 98.8 90 18 140/63 98 09:56 (88) Physical Exam GENERAL: The patient is well-appearing, well-nourished, in no acute distress HEENT: Atraumatic. Conjunctivae are pink. Pupils equal, round, and reactive to light. There is no scleral icterus. Tympanic membranes clear bilaterally. Oropharynx clear.. NECK: C-spine is soft and supple. There is no meningismus. There is no cervical lymphadenopathy. CHEST: Clear to auscultation bilaterally. There are no rales, wheezes or rhonchi. HEART: Regular rate and rhythm. No murmurs, clicks, rubs or gallops. ABDOMEN:Soft, nontender and nondistended. Good bowel sounds. No rebound or guarding. No gross peritonitis. No gross organomegaly or masses. No Cat sign or McBurney point tenderness. Results 24 hrs Laboratory Tests Test 08/19/18 11:02 08/19/18 11:03 Bedside Urine pH (LAB) 7.0 Bedside Urine Protein (LAB) Negative Bedside Urine Glucose (UA) Negative Bedside Urine Ketones (LAB) Negative Bedside Urine Blood Negative Bedside Urine Nitrite (LAB) Negative Bedside Urine Leukocyte Esterase (L 1+ POC Beta HCG, Qualitative NEGATIVE Current Medications Medications Dose Sig/Jami Start Time Status Last (Trade) Ordered Route PRN Stop Time Admin Dose Reason Admin Ondansetron 4 mg ONCE STAT 08/19/18 DC 08/19/18 HCl (Zofran ODT 10:48 10:57 Odt) 08/19/18 10:49 Procedures/MDM MDM: 22-year-old female presenting with headache. Patient does have findings consistent with urinary tract infection. Patient's abdominal exam is non-concerning. I have low suspicion for acute emergency. I do not feel there is indication for blood work or imaging. Patient is discharged with supportive medications and told to follow-up with primary care within 1-2 days for close evaluation. Patient was told if symptoms change or worsen to return to the ER. Patient's urine is negative. Departure Diagnosis: Primary Impression: UTI (urinary tract infection) Condition: Stable Patient Instructions: Understanding Urinary Tract Infections (UTIs) Referrals: JOVANY LONG DO (PCP) Additional Instructions: FOLLOW UP WITH YOUR PRIMARY CARE PHYSICIAN TOMORROW.Return to this facility if you are not improving as expected. SILVIA PALOMINO PA-C Aug 19, 2018 12:32
== END 2018-08-19 11:20 | disposition home or self-care (01) ==
LOC: FTE 09:53
DX: N39.0 Urinary tract infection, site not specified (principal)
CPT/HCPCS: 81003; 81025; Z7502; Z7610; 99283

== ENCOUNTER 2018-11-14 08:51 | Emergency (ER) | payer OTHER ==
[~2018-11-14] VITALS: Wt 117.7 kg
[~2018-11-14 08:51] MED LIST changes: +NITR-58 PO
--- NOTE | 2018-11-14 09:50 | ERD ---
ER Documentation Chief Complaint Chief Complaint 4 weeks with spooting and pain HPI 23-year-old female, with EGA of proximal 4 weeks by LMP 10/04/18, presents to the emergency department complaining of 1 day with vaginal spotting associated with cramping pelvic pain. She denies passing blood clots. ROS All systems reviewed and are negative except as per history of present illness. Medications Home Meds Active Scripts Cephalexin* (Keflex*) 500 Mg Capsule, 500 MG PO QID for 7 Days, CAP Prov:ISSA BORDEN MD 11/14/18 Nitrofurantoin Monohyd Macrocr* (Macrobid*) 100 Mg Capsr, 100 MG PO BID for 14 Days, CAP Prov:SILVIA PALOMINO PA-C 08/19/18 Magaldrate/Simethicone* (Mylanta*) 355 Ml Susp, 30 ML PO QID PRN for GASTROINTESTINAL UPSET, #1 BOTTLE Prov:KASIA VARNER DO 07/29/18 Acetaminophen* (Tylenol*) 325 Mg Tablet, 2 TAB PO Q6 PRN for PAIN AND OR ELEVATED TEMP, #20 TAB Prov:ISSA BORDEN MD 06/01/18 Ranitidine Hcl* (Zantac*) 150 Mg Tablet, 150 MG PO BID PRN for EPIGASTRIC PAIN, #30 TAB Prov:ISSA BORDEN MD 06/01/18 Naproxen* (Naprosyn*) 500 Mg Tablet, 500 MG PO BID PRN for PAIN AND/OR INFLAMMATION, #30 TAB Prov:SILVIA PALOMINO PA-C 01/02/18 Ibuprofen* (Motrin*) 600 Mg Tab, 600 MG PO Q6H PRN for PAIN AND OR ELEVATED TEMP, #30 TAB Prov:MARCO AMANDA NP 06/13/17 Ibuprofen* (Motrin*) 600 Mg Tab, 600 MG PO Q6, #30 TAB Prov:BRIAN DE LA TORRE PA-C 05/17/17 Ondansetron (Ondansetron Odt) 4 Mg Tab.rapdis, 4 MG PO Q8 PRN for NAUSEA AND/OR VOMITING, #30 TAB Prov:HUSSAIN ZAVALA NP 03/16/17 Ibuprofen* (Motrin*) 600 Mg Tab, 600 MG PO Q6H PRN for PAIN AND OR ELEVATED TEMP, #30 TAB Prov:HUSSAIN ZAVALA NP 03/16/17 Dicyclomine HCl (Dicyclomine HCl) 10 Mg Capsule, 10 MG PO QID, #20 CAP Prov:HUSSAIN ZAVALA NP 03/16/17 Tramadol HCl (Tramadol HCl) 50 Mg Tablet, 50 MG PO Q4 PRN for PAIN, #10 TAB Prov:EULALIA MORALES NP 01/09/17 Ibuprofen* (Motrin*) 800 Mg Tab, 800 MG PO Q6, #20 TAB Prov:EULALIA MORALES NP 01/09/17 Dextromethorphan Hb-Promethazine Hcl (Promethazine DM Syrup) 473 Ml Syrup, 5 ML PO Q6H PRN for COUGH, #4 OZ Prov:SILVIA PALOMINO PA-C 09/24/16 Benzonatate* (Tessalon Perle*) 100 Mg Capsule, 100 MG PO TID, #30 CAP Prov:SILVIA PALOMINO PA-C 09/24/16 Azithromycin* (Zithromax*) 250 Mg Tablet, 250 MG PO .SANGITA DIRECTED, #6 TAB TAKE 500 MG (2 TABS) THE FIRST DAY THEN 250 MG (1 TAB) DAYS 2-5 Prov:SILVIA PALOMINO PA-C 09/24/16 Ofloxacin* (Ocuflox*) 0.3%-5 Ml Ophth Drops, 1 DROP RIGHT EYE QID for 7 Days, BOTTLE Prov:RONAK GONZALES 06/13/16 Amoxicillin-Clavulanate K* (Augmentin*) 875 Mg Tab, 875 MG PO BID for 7 Days, TAB Prov:ADRIÁN KRAUS 09/15/15 Ondansetron Hcl* (Zofran* ODT) 4 mg -ODT Tab.disper, 4 MG PO Q6 PRN for NAUSEA AND/OR VOMITING, #10 TAB Prov:MARCO AMANDA NP 09/13/15 Hydrocodone Bit-Acetaminophen* ([place]*) 5-325 Mg Tab, 1 TAB PO Q6 PRN for PAIN, #10 TAB Prov:MARCO AMANDA [employer] COORDINATOR 09/13/15 Allergies Allergies: Coded Allergies: No Known Allergy (Verified , 09/24/16) PMhx/Soc History of Surgery: Yes (Cholecystectomy) Anesthesia Reaction: No Hx Neurological Disorder: No Hx Respiratory Disorders: No Hx Cardiac Disorders: No Hx Psychiatric Problems: No Hx Miscellaneous Medical Probl: No Hx Alcohol Use: Yes (social) Hx Substance Use: No Hx Tobacco Use: No FmHx Family History: diabetes; No coronary disease Physical Exam Vitals Vital Signs Date Temp Pulse Resp B/P (MAP) Pulse Ox O2 O2 Flow FiO2 Time Delivery Rate 11/14/18 98.1 99 20 125/66 99 Room Air 12:22 (85) 11/14/18 98.6 97 18 130/77 99 09:01 (94) Physical Exam Const: No acute distress Head: Atraumatic Eyes: Normal Conjunctiva ENT: Normal External Ears, Nose and Mouth. Neck: Full range of motion. No meningismus. Resp: Clear to auscultation bilaterally Cardio: Regular rate and rhythm, no murmurs Abd: Soft, non tender, non distended. Normal bowel sounds Skin: No petechiae or rashes Back: No midline or flank tenderness Ext: No cyanosis, or edema Neur: Awake and alert Psych: Normal Mood and Affect Result Diagram: 11/14/18 1024 Results 24 hrs Laboratory Tests Test 11/14/18 10:24 White Blood Count 8.6 10^3/ul Red Blood Count 4.45 10^6/ul Hemoglobin 13.3 g/dl Hematocrit 41.1 % Mean Corpuscular Volume 92.4 fl Mean Corpuscular Hemoglobin 29.9 pg Mean Corpuscular Hemoglobin Concent 32.4 g/dl Red Cell Distribution Width 13.9 % Platelet Count 240 10^3/UL Mean Platelet Volume 10.4 fl Immature Granulocytes % 0.400 % Neutrophils % 74.7 % Lymphocytes % 17.9 % Monocytes % 6.0 % Eosinophils % 0.8 % Basophils % 0.2 % Nucleated Red Blood Cells % 0.0 /100WBC Immature Granulocytes # 0.030 10^3/ul Neutrophils # 6.4 10^3/ul Lymphocytes # 1.5 10^3/ul Monocytes # 0.5 10^3/ul Eosinophils # 0.1 10^3/ul Basophils # 0.0 10^3/ul Nucleated Red Blood Cells # 0.0 10^3/ul Urine Color WAQAS Urine Clarity CLOUDY Urine pH 7.0 Urine Specific [place] 1.023 Urine Ketones NEGATIVE mg/dL Urine Nitrite NEGATIVE mg/dL Urine Bilirubin NEGATIVE mg/dL Urine Urobilinogen NEGATIVE mg/dL Urine Leukocyte Esterase 1+ Ronen/ul Urine Microscopic RBC 158 /HPF Urine Microscopic WBC 35 /HPF Urine Squamous Epithelial Cells MODERATE /HPF Urine Mucus FEW /HPF Urine Hemoglobin 3+ mg/dL Urine Glucose NEGATIVE mg/dL Urine Total Protein 2+ mg/dl Beta HCG, Quantitative 1024.6 mIU/ml Patient: NAOMI MURRAY : 1995 Age: 23 Sex: F MR #: [id number] DOS: 11/14/18 1130 Ordering MD: ISSA BORDEN MD Location: [facility] Room/Bed: PROCEDURE: US Pelvis. CLINICAL INDICATION: vaginal bleeding TECHNIQUE: Multiple sonographic images of the pelvis were obtained utilizing a transabdominal and endovaginal technique. The images were reviewed on a PACS workstation. COMPARISON: None. FINDINGS: The uterus is normal in size and demonstrates a normal appearance of the myometrium. The uterus measures 9.9 x 5.4 x 5.5 cm in size. The endometrial stripe is heterogeneous in appearance and has the thickness of 17 mm. No intrauterine gestation is noted. The ovaries are normal in size and echogenicity. Normal Doppler flow is identified in both ovaries. The right ovary measures 3.2 x 2.0 x 3.1 cm. The left ovary measures 3.7 1.6 x 2.7 cm. Trace free fluid is present within the pelvis.. RPTAT: AA IMPRESSION: No intrauterine gestation visualized. Differential diagnosis includes early , missed or ectopic . Follow-up ultrasound and HCG levels is recommended. Procedures/MDM Vital signs stable, Physical exam unremarkable. Differential diagnosis include but not limited to: UTI, threatening , incomplete versus complete , ectopic , physiologic implantation bleeding, molar . Physical examination and clinical presentation most likely consistent with threatening versus early and urinary tract infection. During the ED course the patient remained hemodynamically stable and a symptomatic. Results and clinical impression discussed with patient who agrees with management. The patient is stable to be treated outpatient and will be discharged home with close monitoring and follow-up in 2 days with her primary physician. Bed rest and pelvic rest recommended until further medical evaluation. The patient was instructed regarding the outcomes and the potential complicatio ns like severe bleeding and . If the patient presents severe bleeding or pain, she was instructed to return to the hospital immediately. Disclaimer: Inadvertent spelling and grammatical errors are likely due to EHR/dictation software use and do not reflect on the overall quality of patient care. Also, please note that the electronic time recorded on this note does not necessarily reflect the actual time of the patient encounter. Departure Diagnosis: Primary Impression: Vaginal bleeding in patient at less than 20 weeks gestation Additional Impressions: Threatened UTI (urinary tract infection) Condition: Stable Patient Instructions: Bleeding During Early Additional Instructions: Thank you very much for allowing us to participate in your care. Your health and safety is our top priority at [facility]. Call your primary care doctor TOMORROW for an appointment during the next 2-4 d ays and bring all the information and medications prescribed. Have prescriptions filled and follow precisely the directions on the label. If the symptoms get worse and your provider is unavailable, return to the Emergency Department immediately. ISSA BORDEN MD Nov 14, 2018 09:50
[2018-11-14] MEDS ORDERED: CEPH-443 PO (11:33)
[2018-11-14 12:22] VITALS: BP 125/66; PULSE 99; RESP 20
== END 2018-11-14 12:23 | disposition home or self-care (01) ==
LOC: FTE 08:51
DX: O20.0 Threatened abortion (principal); R10.2 Pelvic and perineal pain; Z3A.01 Less than 8 weeks gestation of pregnancy
CPT/HCPCS: 36415; 76801; 76817; 81001; 84702; 85025; Z7502

== ENCOUNTER 2019-03-08 12:19 | Emergency (ER) | payer OTHER ==
[~2019-03-08] VITALS: Ht 165.1 cm; Wt 108.1 kg
[~2019-03-08 12:19] MED LIST changes: +CEPH-443 PO
[2019-03-08 12:32] VITALS: BP 122/61; PULSE 82; RESP 17; Ht 165.1 cm; Wt 108.1 kg
== END 2019-03-08 15:11 | disposition home or self-care (01) ==
LOC: FTE 12:19
DX: R10.2 Pelvic and perineal pain (principal)
CPT/HCPCS: 76856; 80053; 81001; 81025; 83690; 85025